=== PATIENT | female | born 1995 | race Two or more races ===

== ENCOUNTER 2021-05-25 10:11 | Emergency (ER) | payer OTHER ==
[~2021-05-25] VITALS: Ht 157.5 cm; Wt 68.1 kg
[2021-05-25 11:10] VITALS: BP 120/74
[2021-05-25] MEDS ORDERED: hydrOXYzine 25 MG TAB or CAP PO ONE (11:45)
== END 2021-05-25 12:24 | disposition home or self-care (01) ==
LOC: ER 10:11
DX: F41.9 Anxiety disorder, unspecified (principal); F12.10 Cannabis abuse, uncomplicated; J45.909 Unspecified asthma, uncomplicated